=== PATIENT | male | born 1950 | race Caucasian/White ===

== ENCOUNTER 2016-09-30 17:09 | Emergency (ER) | payer OTHER ==
[2016-09-30 17:25] VITALS: O2SAT 94
[2016-09-30] MEDS ORDERED: MORPHINE SULFATE 10 MG/ML IV ONE (17:37)
[2016-09-30] MEDS ORDERED: Zofran 4 MG/2 ML VIAL IV ONE (17:37)
[2016-09-30] MEDS ORDERED: Sodium Chloride 0.9% 1000 ML 1,000 ML IV SCH (17:45)
--- NOTE | 2016-09-30 17:48 | ERPHSYRPT ---
- History of Present Illness Time Seen by Provider: 09/30/16 17:35 Source: patient Exam Limitations: clinical condition Patient Subjective Stated Complaint: Pt was at work and fell approx 9 ft onto his back, buttock, and head. Denies any LOC. Finished the work day. Complaining of pain in his butt, spasms in the center of his back, and abrasion to back of head. Triage Nursing Assessment: Pt alert and oriented x3. skin pink warm and dry. afebrile. no bruising or swelling noted to back. abrasion noted to back of head Physician History: PATIENT FELL AT WORK OFF [employer]RU[employer] HEIGHT OF 10 FEET ONTO BUTTOCKS, STRUCK BACK OF HEAD, HAS NECK STIFFNESS AND PROGRESSIVE PAIN IN UPPER TO LOWER BACK. HAS HAD LAMINECTOMY OF LUMBAR SPIN IN THE PAST. DENIES LOSS OF CONSCIOUSNESS, NUMBNESS, TINGLING OR WEAKNESS IN EXTREMITIES. Occurred: this morning (AT 5AM) Reason for Fall: slipped Injuries/Pain Location: head, neck, back, pelvis Loss of Consciousness: no loss of consciousness Quality: aching, throbbing Severity of Pain-Max: moderate Severity of Pain-Current: moderate Modifying Factors: Improves With: movement Associated Symptoms (Fall): back pain, muscle spasms Allergies/Adverse Reactions: No Known Drug Allergies Allergy (Unverified 09/30/16 17:15) Hx Tetanus, Diphtheria Vaccination/Date Given: Yes Hx Influenza Vaccination/Date Given: Yes Hx Pneumococcal Vaccination/Date Given: Yes - Review of Systems Constitutional: No Fever, No Chills Eyes: No Symptoms Ears, Nose, & Throat: No Symptoms Respiratory: No Symptoms, No Cough, No Dyspnea Cardiac: No Symptoms, No Chest Pain, No Edema, No Syncope Abdominal/Gastrointestinal: No Symptoms, No Abdominal Pain, No Nausea, No Vomiting, No Diarrhea Genitourinary Symptoms: No Symptoms, No Dysuria Musculoskeletal: Back Pain, Neck Pain, Injury Skin: No Rash Neurological: No Dizziness, No Focal Weakness, No Sensory Changes Psychological: No Symptoms Endocrine: No Symptoms All Other Systems: Reviewed and Negative - Past Medical History Neurological History: Peripheral Neuropathy ENT History: No Pertinent History Cardiac History: High Cholesterol, Hypertension, Myocardial Infarction (DC) Respiratory History: No Pertinent History Endocrine Medical History: Diabetes Type II Musculoskeletal History: Arthritis GI Medical History: Hernia History: No Pertinent History Psycho-Social History: No Pertinent History Male Reproductive Disorders: No Pertinent History - Past Surgical History Past Surgical History: Yes Cardiac: Cardiac Stent Gastrointestinal: Cholecystectomy, Hernia Repair Other Surgical History: right eardrum repair - Social History Smoking Status: Former smoker Exposure to second hand smoke: No Drug Use: none Patient Lives Alone: No - Nursing Vital Signs Nursing Vital Signs: Initial Vital Signs Temperature 97.6 F Temperature Source Oral Pulse Rate 60 Respiratory Rate 16 Blood Pressure [] 148/74 Pain Intensity 7 - Clyde Coma Score Best Eye Response (Clyde): (4) open spontaneously Best Verbal Response (Annika): (5) oriented Best Motor Response (Annika): (6) obeys commands Annika Total: 15 - Physical Exam General Appearance: no apparent distress, alert Head Injury: swelling (THERE IS A LEFT UPPER OCCIPITAL SCALP ABRASION 3CM X4CM WITH SLIGHT SWELLING AND TENDERNESS), tenderness Eye Exam: PERRL/EOMI ENT Exam: airway nml Neck Exam: normal inspection, other (THERE IS MINIMAL POST CERVICAL SPINAL TENDERNESS), No tenderness Respiratory/Chest Exam: normal breath sounds, No chest tenderness, No respiratory distress Cardiovascular Exam: normal heart sounds, regular rate/rhythm Gastrointestinal Exam: soft, normal bowel sounds, No tenderness, No distention, No guarding, No ecchymosis Back Exam: normal inspection, decreased range of motion, point tenderness (T-1 TO L-5 WITH LEFT PARASPINAL TENDERNESS.), No vertebral tenderness Extremity Exam: normal inspection, normal range of motion, pelvis stable, No deformities Peripheral Pulses: carotid (R): 2+, carotid (L): 2+, femoral (R): 2+, femoral (L ): 2+, dorsalis-pedis (R): 2+ Neurologic Exam: alert, oriented x 3, cooperative, sensation nml, No motor deficits Skin Exam: normal color, warm, dry SpO2: 94 Oxygen Delivery: Room Air - CT Exams Head CT Interpretation: Tele-radiologist Report, No/Intracranial Hemorrhag ( THERE IS PARTIAL OPACIFICATION OF THE LEFT MIDDLE EAR CAVITY AND MASTOID) Cervical Spine CT Interpretation: Tele-radiologist Report, No Fracture, No Subluxation Thoracic Spine CT Interpretation: Tele-radiologist Report, No Fracture, No Subluxation (MILD DEGENERATIVE CHANGE) Lumbar Spine CT Interpretation: Tele-radiologist Report (MILD DISC BULGE AT L3-L4, L4-L5, L5- S1, NO FRACTURE) Pelvis CT Interpretation: Tele-radiologist Report, No Fracture, No Subluxation Ordered Tests: Active Orders 24 hr Category Date Time Status Cervical Collar Application STAT Care 09/30/16 17:37 Active IV Insertion STAT Care 09/30/16 17:37 Active CERVICAL SPINE WO CONTRAST [CT] Stat Exams 09/30/16 17:39 Taken HEAD WITHOUT CONTRAST [CT] Stat Exams 09/30/16 17:39 Taken LUMBAR SPINE W/O [CT] Stat Exams 09/30/16 17:39 Taken PELVIS WITHOUT CONTRAST [CT] Stat Exams 09/30/16 17:41 Taken THORACIC SPINE W/O CONTRAST [CT] Stat Exams 09/30/16 17:39 Taken BMP Stat Lab 09/30/16 17:52 Completed CBC W DIFF Stat Lab 09/30/16 17:52 Completed UA W/RFX UR CULTURE Stat Lab 09/30/16 19:50 Completed Transfer Order Routine Transfer 09/30/16 17:50 Ordered Medication Summary Generic Name Dose Route Start Last Admin Trade Name Freq PRN Reason Stop Dose Admin Sodium Chloride 1,000 mls @ 100 mls/hr 09/30/16 17:45 09/30/16 19:26 Sodium Chloride 0.9% 1000 Ml IV 10/30/16 17:44 100 mls/hr .Q10H AVIVA Administration Discontinued Medications Generic Name Dose Route Start Last Admin Trade Name Freq PRN Reason Stop Dose Admin Morphine Sulfate 8 mg 09/30/16 17:37 09/30/16 19:27 Morphine Sulfate 10 Mg/Ml IV 09/30/16 17:38 8 mg STAT ONE Administration Morphine Sulfate Confirm 09/30/16 19:25 Morphine Sulfate 10 Mg/Ml Administered 09/30/16 19:26 Dose 10 mg .ROUTE .STK-MED ONE Ondansetron HCl 4 mg 09/30/16 17:37 09/30/16 19:27 Zofran 4 Mg/2 Ml Vial IV 09/30/16 17:38 4 mg STAT ONE Administration Ondansetron HCl Confirm 09/30/16 19:24 Zofran 4 Mg/2 Ml Vial Administered 09/30/16 19:25 Dose 4 mg .ROUTE .STK-MED ONE Lab/Rad Data: Laboratory Result Diagrams 09/30/16 17:52 09/30/16 17:52 Laboratory Results 09/30/16 09/30/16 09/30/16 Range/Units 19:50 17:52 17:52 WBC 6.3 (4.0-10.5) K/mm3 RBC 4.33 (4.1-5.6) M/mm3 Hgb 13.4 (12.5-18.0) gm/dl Hct 39.6 L (42-50) % MCV 91.5 (78-100) fl MCH 30.9 (26-32) pg MCHC 33.8 (32-36) g/dl RDW 13.5 (11.5-14.0) % Plt Count 186 (150-450) K/mm3 MPV 11.1 H (6-9.5) fl Gran % 53.8 (36.0-66.0) % Lymphocytes % 36.1 (24.0-44.0) % Monocytes % 8.0 (0.0-12.0) % Eosinophils % 1.3 (0.00-5.0) % Basophils % 0.8 (0.0-0.4) % Basophils # 0.05 (0-0.4) Sodium 139 (136-145) mEq/L Potassium 4.2 (3.5-5.1) mEq/L Chloride 103 (98-107) mEq/L Carbon Dioxide 29.0 (21-32) mEq/L Anion Gap 11.5 (5-15) MEQ/L BUN 17 (9-20) mg/dL Creatinine 1.16 (0.55-1.30) mg/dl Estimated GFR > 60 ML/MIN Glucose 105 (70-110) MG/DL Calcium 9.7 (8.5-10.1) mg/dL Ur Collection Type CCMS Urine Color YELLOW (YELLOW) Urine Appearance CLEAR (CLEAR) Urine pH 5.0 (5-6) Ur Specific Stuart 1.020 (1.005-1.025) Urine Protein NEGATIVE (Negative) Urine Ketones NEGATIVE (NEGATIVE) Urine Blood NEGATIVE (0-5) Amrit/ul Urine Nitrite NEGATIVE (NEGATIVE) Urine Bilirubin NEGATIVE (NEGATIVE) Urine Urobilinogen NORMAL (0-1) mg/dL Ur Leukocyte Esterase NEGATIVE (NEGATIVE) Urine Glucose 100 (NEGATIVE) mg/dL Specimen Received 09-30-16 2007 - Progress Progress Note: 09/30/16 19:32 PATIENT GIVEN IV NORMAL SALINE AT 100ML/HR, ZOFRAN 4MG, MORPHINE 8MG IV Counseled pt/family regarding: lab results, diagnosis, need for follow-up, rad results - Departure Time of Disposition: 20:15 Departure Disposition: Home Clinical Impression: OCCIPITAL SCALP CONTUSION, ACUTE CERVICAL/THORACIC/LUMBAR STRAIN Condition: Stable Critical Care Time: No Referrals: ELIUD RODRÍGUEZ [Primary Care Provider] - Additional Instructions: FOLLOW HEAD INJURY INSTRUCTIONS, NORCO 10/325 EVERY 4-6 HOURS NEEDED FOR PAIN. NORFLEX 100 MG TWICE DAILY FOR MUSCLE SPASM. FOLLOWUP WITH YOUR FAMILY PHYSICIAN IN 1 WEEK. Prescriptions: Hydrocodone/APAP 10/325 mg [Herriman 10/325 MG Tablet] 1 tab PO Q4H PRN PRN # 20 tablet PRN Reason: Pain Orphenadrine Citrate 100 mg [Norflex 100 MG Tablet] 100 mg PO BIDPRN PRN # 10 tab PRN Reason: Muscle Spasms
[2016-09-30 18:07] LABS: BASOPHIL % 0.8 % (0.0-0.4); Eosinophil % 1.3 % (0.00-5.0); Granulocytes % 53.8 % (36.0-66.0); Lymphocytes % 36.1 % (24.0-44.0); Mean Cell Volume 91.5 fl (78-100); Mean Corpuscular Hemoglobin 30.9 pg (26-32); Mean Platelet Volume 11.1 fl (6-9.5); Platelet Count 186 K/mm3 (150-450); Red Blood Count 4.33 M/mm3 (4.1-5.6); Red Cell Distribution Width 13.5 % (11.5-14.0); White Blood Count 6.3 K/mm3 (4.0-10.5)
[2016-09-30 18:22] LABS: ANION GAP 11.5 MEQ/L (5-15); BLOOD UREA NITROGEN 17 mg/dL (9-20); CHLORIDE 103 mEq/L (98-107); Glucose 105 MG/DL (70-110); Potassium 4.2 mEq/L (3.5-5.1); SODIUM 139 mEq/L (136-145)
[2016-09-30] MEDS ORDERED: Zofran 4 MG/2 ML VIAL ONE (19:24)
[2016-09-30] MEDS ORDERED: MORPHINE SULFATE 10 MG/ML ONE (19:25)
[2016-09-30] MEDS ORDERED: Sodium Chloride 0.9% 1000 ML 1,000 ML ONE (19:25)
[2016-09-30 20:07] LABS: ADD URINE CULTURE? NO (NO); Bilirubin NEGATIVE (NEGATIVE); Blood NEGATIVE Ery/ul (0-5); COMPLETE URINE MICROSCOPIC? NO; Collection Type CCMS; Glucose 100 mg/dL (NEGATIVE); Leukocyte Esterase NEGATIVE (NEGATIVE)
[2016-09-30 20:59] VITALS: BP 142/75; PULSE 48
--- NOTE | 2016-10-01 09:15 | XRAY ---
Indication: Pain following fall. Multiple contiguous axial images obtained through the head without contrast. Comparison: None Age-appropriate global atrophy and minimal periventricular degenerative micro-ischemia. No acute intracranial hemorrhage, abnormal extra-axial fluid collection, or mass effect. Fourth ventricle is midline without hydrocephalus. Bony calvarium intact. Partial opacification of the left middle ear and mastoid air cells. Remaining visualized paranasal sinuses and and right mastoid air cells are clear. Impression: No acute intracranial abnormalities. Incidental partial opacification of the left middle ear and mastoid air cells presumed inflammatory. Comment: Preliminary interpretation was made by [facility]. No discrepancy. CT DI 49.41
--- NOTE | 2016-10-01 09:17 | XRAY ---
Indication: Pain following fall. Multiple contiguous axial images obtained through the cervical spine. Sagittal and coronal reformatted images obtained. Comparison: None Axial images negative for acute fracture, suspicious bony lesions, or spinal canal stenosis. Mild C6-C7 degenerative endplate spurring. Sagittal and coronal reformatted images demonstrates slight lordotic straightening with mild C6-C7 disc space narrowing. No acute compression fracture, subluxation, or jumped facet. Normal-appearing craniocervical junction. Visualized noncontrasted soft tissues demonstrates mild scattered carotid calcifications bilaterally. Lung apices clear. CT head reported separately. Impression: 1. Negative for acute fracture/subluxation. 2. Mild lordotic straightening, positional versus paraspinal spasm. 3. Incidental C6-C7 degenerative disc disease. Comment: Preliminary interpretation was made by [facility]. No discrepancy. CT DI 125.90
--- NOTE | 2016-10-01 09:19 | XRAY ---
Indication: Pain following fall. Multiple contiguous axial images obtained through the thoracic spine. Sagittal and coronal reformatted images obtained. Comparison: None Axial images negative for acute fracture, suspicious bony lesions, or spinal canal stenosis. Mild multilevel anterior flowing degenerative endplate spurring. Sagittal and coronal reformatted images demonstrates normal alignment. No acute compression fracture or subluxation. Visualized noncontrasted soft tissues demonstrates mild bilateral dependent atelectasis, left hilar calcified nodes, and hepatic/splenic calcified granulomas. CT cervical spine and lumbar spine reported separately. Impression: 1. Negative for acute fracture/subluxation. 2. Multilevel degenerative flowing osteophytes and evidence for old granulomas disease. Comment: Preliminary interpretation was made by [facility]. No discrepancy. CT DI 131.49
--- NOTE | 2016-10-01 09:25 | XRAY ---
Indication: Pain following fall. Multiple contiguous axial images obtained through the lumbar spine. Sagittal and coronal reformatted images obtained. Comparison: None Axial images negative for acute fracture, suspicious bony lesions, or spinal canal stenosis. Mild multilevel marginal endplate spurring. Mild L3-S1 broad-based disc bulge. Mild bilateral L5-S1 degenerative facet arthropathy. Additional bilateral SI joint degenerative changes. Sagittal and coronal reformatted images demonstrates normal alignment with vertebral body heights and disc spaces maintained. No acute compression fracture or subluxation. Visualized noncontrasted soft tissues demonstrates moderate aortoiliac calcifications without AAA. CT thoracic spine reported separately. Impression: 1. Negative for acute fracture/subluxation. 2. Multilevel degenerative changes as detailed. Comment: Preliminary interpretation was made by [facility]. No discrepancy. CT DI 125.43
--- NOTE | 2016-10-01 09:27 | XRAY ---
Indication: Tailbone pain following fall. Multiple contiguous axial images obtained through the pelvis with special attention to the osseous structures. Comparison: None There is no acute fracture, dislocation, or suspicious bony lesions. Degenerative changes of the lower lumbar spine and SI joints. Visualized noncontrasted soft tissues demonstrates moderately distended urinary bladder possibly outlet obstruction versus neurogenic bladder. Mild sigmoid diverticulosis and scattered aortoiliac calcifications. CT lumbar spine reported separately. Impression: 1. Negative for acute fracture/dislocation. 2. Degenerative changes as detailed. Comment: Preliminary interpretation was made by [facility]. No discrepancy. CT DI 41.90
== END 2016-09-30 20:55 | disposition home or self-care (01) ==
LOC: ED 17:09
DX: S00.03XA Contusion of scalp, initial encounter (principal); S16.1XXA Strain of muscle, fascia and tendon at neck level, initial encounter; S29.012A Strain of muscle and tendon of back wall of thorax, initial encounter; S39.012A Strain of muscle, fascia and tendon of lower back, initial encounter; W17.89XA Other fall from one level to another, initial encounter
CPT/HCPCS: 36000; 36415; 70450; 72125; 72128; 72131; 72192; 80048; 81002; 85025; 96360; 96361; 96374; 96375; 99284; J2270; J2405; L0172